=== PATIENT | female | born 1990 | race Asian ===

== ENCOUNTER 2020-08-02 12:18 | Emergency (ER) | payer OTHER ==
[~2020-08-02] VITALS: Ht 170.2 cm; Wt 61.2 kg
[2020-08-02 12:27] VITALS: BP 126/77
--- NOTE | 2020-08-02 14:39 | NUR ---
Patient discharged to home in stable condition. Written and verbal after care instructions given. Patient verbalizes understanding of instruction.
== END 2020-08-02 14:45 | disposition home or self-care (01) ==
LOC: ER 12:22
DX: S40.012A Contusion of left shoulder, initial encounter (principal); S20.222A Contusion of left back wall of thorax, initial encounter; X58.XXXA Exposure to other specified factors, initial encounter; Y93.89 Activity, other specified; Y92.89 Other specified places as the place of occurrence of the external cause; Y99.8 Other external cause status